=== PATIENT | male | born 1955 | race Caucasian/White ===

== ENCOUNTER → 2021-01-23 | Outpatient (CLI) | payer BC ==
[~2021-01-23] VITALS: Ht 185.4 cm; Wt 93.4 kg
[~2021-01-23] MED LIST: CIALIS20 MG PO; NEURONTIN300 MG PO; WELLBUTRIN SR150 M1 PO
[2021-01-23 07:38] VITALS: BP 125/67
[2021-01-23 08:02] LABS: HEMATOCRIT 41.3 % (42.0-52.0); HEMOGLOBIN 13.8 gm/dL (14.0-18.0); MCHC 33.5 g/dL (28.0-37.0); MCV 89.4 fL (80.0-100.0); RBC 4.62 mil/uL (4.50-6.00); RDW 13.1 % (10.5-14.5); WBC 4.4 thou/uL (4.0-11.0)
--- NOTE | 2021-01-23 09:11 | CATHLAB ---
[facility] [place] [address] INVASIVE PROCEDURE REPORT Name: ANNEMARIE GRAY Room #: REG MOON [place].#: [id number] Admission: 01/23/21 Attend Phys: Cody Pool MD, Discharge: Date of : 59 Report #: [id number] THIS REPORT FOR: cc: SHANNAN [facility] FAMILY PHYSICIAN or PCP Cody Pool MD [facility] ~ APPROVED REPORT Study performed: 01/23/2021 08:00:10 Patient Details Patient Status: Out-Patient Room #: The patient is a 65 year-old male Event Personnel Cody Pool Mail Agent, Ankur Borden RN RN, Chandrika Hill RTR ScrubRoxanne Ja'net RTR Monitor Procedures Performed Art Access - R femoral artery* Left Heart Cath w/or w/o Coronaries [id number] [facility] 11435 Initial Mod Sed Same Phys/QHP Gr5y [id number] Hemostasis w/ Mynx Indication Chest pain Procedure Narrative The Right Groin^ was infiltrated with 1% Lidocaine subcutaneous anesthesia. A PINNACLE 6FR Sheath #[id number] sheath was inserted into the RFA^. Coronary angiography was performed using coronary diagnostic catheters. The right coronary system was accessed and visualized with a JR4 catheter. The left coronary system was accessed and visualized with a JL4 catheter. The left ventricle was accessed and visualized with a PIGTAIL catheter. Left ventricular/Aortic Valve gradient assessed via catheter pullback. Left ventriculogram was performed in 30 degree projection. Closure device was deployed with a Fr MYNXGRIP 6/7F #[id number]. The patient tolerated the procedure well and there were no complications associated with the procedure. There was no hematoma. Intraoperative Conscious Sedation Sedation start time: 8:19 Case end Time: 8:43 Fentanyl 50 mcg Versed 1 mg [facility] [place] [address] INVASIVE PROCEDURE REPORT Name: ANNEMARIE GRAY Room #: REG PRIYANK Read#: [id number] Admission: 01/23/21 Attend Phys: Cody Pool, Discharge: Date of : 59 Report #: [id number] Fluoro Time: 3.70 minutes Dose: DAP 7174.50 cGycm2 874 mGy Contrast Type and Amount: Omnipaque 150 ml Coronary Angiography The patient's coronary anatomy is right dominant. 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 Normal circumflex OM1 Normal OM1 OM2 Normal OM two OM3 Normal OM three Right Coronary Dominant right coronary with minimal mid right coronary plaquing R PDA Normal posterior descending Left Ventriculography The left ventricle is normal in size with normal contractility. The left ventricular ejection fraction is estimated to be 60-65%. Left ventricular wall motion abnormalities are not present. There is no mitral insufficiency. Hemodynamics The aortic pressure is 97/50 mmHg with a mean of 73 mmHg. The left ventricular pressure is 110/3 mmHg with a mean of mmHg. The left ventricular end diastolic pressure is 14 mmHg. Pullback from the left ventricle to the aorta revealed no gradient across the aortic valve. Conclusion 1. Normal global and regional left ventricular systolic function. EF 65% 2. Normal left main 3. Minimal scattered atherosclerotic plaquing. Right coronary [facility] [address] [place] [address] INVASIVE PROCEDURE REPORT Name: ANNEMARIE GRAY Room #: REG [facility]#: [id number] Admission: 01/23/21 Attend Phys: Cody Pool, Discharge: Date of : 59 Report #: [id number] dominant circulation. 4. 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 <ELECTRONICALLY SIGNED> By: Cody Pool MD, [facility] 01/23/21910 0 0 Cody Pool MD, FACC /INF
== END | disposition home or self-care (01) ==
LOC: CATH 06:31
PROVIDERS: ATTEND Internal Medicine
DX: R07.9 Chest pain, unspecified (principal); I25.10 Atherosclerotic heart disease of native coronary artery without angina pectoris; R94.39 Abnormal result of other cardiovascular function study; I10 Essential (primary) hypertension; E78.5 Hyperlipidemia, unspecified; Z98.890 Other specified postprocedural states; Z79.899 Other long term (current) drug therapy; Z79.01 Long term (current) use of anticoagulants; Z98.52 Vasectomy status; Z95.0 Presence of cardiac pacemaker